=== PATIENT | female | born 1965 | race Caucasian/White ===

== ENCOUNTER 2021-07-05 00:13 | Inpatient (IN) | payer MEDICAID ==
[~2021-07-05] VITALS: Ht 162.6 cm; Wt 82.6 kg
[2021-07-05] MEDS ORDERED: ASPIRIN 81MG TABLET PO ONE (00:45)
[2021-07-05] MEDS ORDERED: NITROGLYCERIN 0.4MG TABLET SL SL PRN (00:45)
[2021-07-05 00:58] LABS: BASOPHILS % 0.5 % (0.0-2.0); HEMATOCRIT. 39.7 % (36.0-48.0); HEMOGLOBIN. 13.2 g/dL (12.0-16.0); LYMPHOCYTES % 22.4 % (20.0-50.0); MEAN CORPUSCULAR HEMOGLOBIN 28.6 pg (28.0-32.0); MEAN PLATELET VOLUME 9.6 fl (7.4-10.4); NEUTROPHILS % 68.1 % (40.0-76.0); PLATELET 220 x1000/uL (130-400); RED BLOOD CELL COUNT 4.61 mill/uL (4.2-5.4); RED CELL DISTRIBUTION WIDTH 13.1 % (11.6-14.6)
[2021-07-05 01:08] LABS: CHLORIDE 113 mEq/L (98-107)
[2021-07-05] MEDS ORDERED: FUROSEMIDE 40MG/4ML VIAL IVP ONE (01:15)
[2021-07-05] MEDS ORDERED: HEPARIN 25,000 UNITS in DEXT 5% WATER 250 ML IV PRN (02:15)
[2021-07-05 05:45] VITALS: BP 156/97
[2021-07-05] MEDS ORDERED: AMLO2.5T45 PO (07:07)
[2021-07-05] MEDS ORDERED: HYDR25TA PO (07:07)
[2021-07-05] MEDS ORDERED: NAPR500T7 PO (07:07)
[2021-07-05] MEDS ORDERED: LISI10TA26 PO (07:07)
[2021-07-05 08:00] VITALS: BP 158/80
[2021-07-05] MEDS ORDERED: ONDANSETRON HCL 4MG/2ML INJ IV PRN (08:30)
[2021-07-05] MEDS ORDERED: ACETAMINOPHEN 325MG TABLET PO PRN (08:30)
[2021-07-05] MEDS ORDERED: REGADENOSON 0.4 MG/5 ML IV ONE (09:15)
[2021-07-05] MEDS: ASPIRIN 81MG TABLET PO SCH (09:42)
[2021-07-05] MEDS: AMLODIPINE 5MG TABLET PO SCH (09:43)
[2021-07-05] MEDS: LISINOPRIL 10MG TABLET PO SCH (09:43)
[2021-07-05 10:00] VITALS: BP 129/80
[2021-07-05] MEDS ORDERED: HEPARIN BOLUS PRN aPTT <30 IV (10:00)
[2021-07-05] MEDS ORDERED: HEPARIN BOLUS PRN aPTT 30-44 IV (10:00)
[2021-07-05] MEDS ORDERED: LISINOPRIL 2.5MG TABLET PO SCH (10:00)
[2021-07-05 12:00] VITALS: BP 133/73
[2021-07-05 16:00] VITALS: BP 142/82
[2021-07-05 20:00] VITALS: BP 133/73
[2021-07-06] VITALS: BP 114/60
[2021-07-06 04:00] VITALS: BP 125/57
[2021-07-06 07:54] LABS: BASOPHILS % 0.7 % (0.0-2.0); EOSINOPHILS % 2.3 % (0.0-5.0); HEMATOCRIT. 37.6 % (36.0-48.0); HEMOGLOBIN. 12.3 g/dL (12.0-16.0); LYMPHOCYTES % 24.6 % (20.0-50.0); MEAN CORPUSCULAR HEMOGLOBIN 28.4 pg (28.0-32.0); MEAN CORPUSCULAR VOLUME 86.7 fL (81.0-99.0); MEAN PLATELET VOLUME 10.2 fl (7.4-10.4); MONOCYTES % 7.6 % (2.0-8.0); NEUTROPHILS % 64.8 % (40.0-76.0); PLATELET 220 x1000/uL (130-400); RED BLOOD CELL COUNT 4.34 mill/uL (4.2-5.4); RED CELL DISTRIBUTION WIDTH 13.4 % (11.6-14.6)
[2021-07-06 08:00] VITALS: BP 133/69
[2021-07-06 08:01] LABS: CHLORIDE 109 mEq/L (98-107)
[2021-07-06 08:11] LABS: LDL CHOLESTEROL 105 mg/dL (5-100)
[2021-07-06 08:14] LABS: HDL CHOLESTEROL 63 mg/dL (40-59)
[2021-07-06] MEDS: ENOXAPARIN 40MG/0.4ML SYR SUBCUT SCH (09:13)
[2021-07-06] MEDS: LISINOPRIL 10MG TABLET PO SCH (09:14)
[2021-07-06] MEDS: ASPIRIN 81MG TABLET PO SCH (09:14)
[2021-07-06] MEDS: AMLODIPINE 5MG TABLET PO SCH (09:15)
[2021-07-06 12:00] VITALS: BP 149/69
[2021-07-06 16:00] VITALS: BP 128/61
[2021-07-06 20:00] VITALS: BP 136/43
[2021-07-07] VITALS: BP 145/66
[2021-07-07 04:00] VITALS: BP 151/70
[2021-07-07 07:43] LABS: BASOPHILS % 0.7 % (0.0-2.0); EOSINOPHILS % 2.6 % (0.0-5.0); HEMATOCRIT. 36.7 % (36.0-48.0); HEMOGLOBIN. 12.4 g/dL (12.0-16.0); LYMPHOCYTES % 22.3 % (20.0-50.0); MEAN CORPUSCULAR HEMOGLOBIN 29.3 pg (28.0-32.0); MEAN CORPUSCULAR VOLUME 86.5 fL (81.0-99.0); NEUTROPHILS % 66.4 % (40.0-76.0); PLATELET 206 x1000/uL (130-400); RED BLOOD CELL COUNT 4.24 mill/uL (4.2-5.4); RED CELL DISTRIBUTION WIDTH 13.1 % (11.6-14.6)
[2021-07-07 07:56] LABS: CHLORIDE 108 mEq/L (98-107)
[2021-07-07 08:00] VITALS: BP 141/68
[2021-07-07] MEDS: AMLODIPINE 5MG TABLET PO SCH (09:23)
[2021-07-07] MEDS: ASPIRIN 81MG TABLET PO SCH (09:23)
[2021-07-07] MEDS: LISINOPRIL 10MG TABLET PO SCH (09:24)
[2021-07-07] MEDS: ENOXAPARIN 40MG/0.4ML SYR SUBCUT SCH (09:24)
[2021-07-07 12:00] VITALS: BP 145/60
[2021-07-07] MEDS ORDERED: REGADENOSON 0.4 MG/5 ML IV ONE (12:56)
[2021-07-07 16:00] VITALS: BP 115/67
[2021-07-07] MEDS ORDERED: AMLODIPINE 5MG TABLET PO SCH (21:00)
== END 2021-07-07 17:37 | disposition home or self-care (01) | DRG 203 ==
LOC: ER 00:13 → 7EST 03:10 → ENRESERV 03:55
PROVIDERS: ADMIT Internal Medicine; ATTEND Internal Medicine
DX: M94.0 Chondrocostal junction syndrome [Tietze] (principal); E87.0 Hyperosmolality and hypernatremia; E87.8 Other disorders of electrolyte and fluid balance, not elsewhere classified; E11.9 Type 2 diabetes mellitus without complications; Z20.822 Contact with and (suspected) exposure to COVID-19; I10 Essential (primary) hypertension; E66.9 Obesity, unspecified; Z82.49 Family history of ischemic heart disease and other diseases of the circulatory system; Z79.899 Other long term (current) drug therapy; Z68.31 Body mass index [BMI] 31.0-31.9, adult; I35.0 Nonrheumatic aortic (valve) stenosis
CPT/HCPCS: 36415; 71045; 78452; 80048; 80053; 80061; 83880; 84443; 84484; 85025; 87426; 93005; 93017; 93306; 99285; A9500; J1650; J1940; J2785

== ENCOUNTER 2025-05-31 16:43 | Inpatient (IN) | payer MEDICAID ==
[~2025-05-31] VITALS: Ht 162.6 cm; Wt 81.6 kg
[~2025-05-31 16:43] MED LIST: AMLO2.5T45 PO; APIX5TAB PO; ASPI-1160 PO; ATOR20TA65 PO; LISI-648 MT; METF-414 PO
[2025-05-31 16:55] VITALS: O2SAT 99
[2025-05-31] MEDS: ASPIRIN 325MG EC TABLET PO ONE (18:29)
[2025-05-31 18:37] LABS: BASOPHILS % 0.5 % (0.0-2.0); EOSINOPHILS % 0.9 % (0.0-5.0); HEMATOCRIT. 39.6 % (36.0-48.0); HEMOGLOBIN. 13.2 g/dL (12.0-16.0); LYMPHOCYTES % 14.6 % (20.0-50.0); MEAN PLATELET VOLUME 9.7 fl (7.4-10.4); MONOCYTES % 5.6 % (2.0-8.0); NEUTROPHILS % 78.4 % (40.0-76.0); PLATELET 231 x1000/uL (130-400); RED BLOOD CELL COUNT 4.72 mill/uL (4.2-5.4); RED CELL DISTRIBUTION WIDTH 13.2 % (11.6-14.6)
[2025-05-31 18:55] LABS: CREATININE 0.7 mg/dL (0.6-1.0); UREA NITROGEN BLOOD 10 mg/dL (9-23)
[2025-05-31 18:56] LABS: ASPARTATE AMINOTRANSFERASE 27 IU/L (<34)
[2025-05-31 18:57] LABS: BILIRUBIN DIRECT 0.2 mg/dL (<=3.0); BILIRUBIN TOTAL 0.6 mg/dL (0.1-1.0); PROTEIN TOTAL 7.6 g/dL (6.0-8.3)
[2025-05-31 19:09] LABS: TROPONIN I HIGH SENSITIVITY 156 ng/L (3.0-34)
[2025-05-31 22:16] LABS: TROPONIN I HIGH SENSITIVITY 169 ng/L (3.0-34)
[2025-05-31] MEDS ORDERED: ENOXAPARIN 40MG/0.4ML SYR SUBCUT NR (23:25)
[2025-05-31] MEDS ORDERED: MAGNESIUM/ALUMINUM HYDROXIDE/SIMETHICONE 30ML UDC PO PRN (23:30)
[2025-05-31] MEDS ORDERED: DEXTROSE 50% WATER 50ML SYRINGE IV PRN (23:30)
[2025-05-31] MEDS ORDERED: HYDROCODONE/ACETAMINOPHEN 5/325MG TABLET PO PRN (23:30)
[2025-05-31] MEDS ORDERED: ZOLPIDEM TARTRATE 5MG TABLET PO PRN (23:30)
[2025-05-31] MEDS ORDERED: CLONIDINE 0.1MG TABLET PO PRN (23:30)
[2025-05-31] MEDS ORDERED: ACETAMINOPHEN 325MG TABLET PO PRN (23:30)
[2025-05-31] MEDS ORDERED: ENOXAPARIN 40MG/0.4ML SYR SUBCUT SCH (23:30)
[2025-05-31] MEDS ORDERED: ONDANSETRON HCL 4MG/2ML INJ IV PRN (23:30)
[2025-06-01] VITALS: BP 102/41; PULSE 74; RESP 18; TEMP 36.2512
[2025-06-01] MEDS: ENOXAPARIN 100MG/ML SYR SUBCUT NR (00:29)
[2025-06-01] MEDS: BLOOD SUGAR DIAGNOSTIC STRIP TEST SCH (07:10)
[2025-06-01] MEDS: INSULIN LISPRO 100 UNITS/ML SUBCUT SCH (07:40)
[2025-06-01 07:58] LABS: INR 1.1
[2025-06-01 07:59] LABS: BASOPHILS % 0.9 % (0.0-2.0); EOSINOPHILS % 2.4 % (0.0-5.0); HEMATOCRIT. 36.4 % (36.0-48.0); HEMOGLOBIN. 12.2 g/dL (12.0-16.0); LYMPHOCYTES % 27.5 % (20.0-50.0); MEAN PLATELET VOLUME 10.2 fl (7.4-10.4); MONOCYTES % 9.4 % (2.0-8.0); NEUTROPHILS % 59.8 % (40.0-76.0); PLATELET 203 x1000/uL (130-400); RED BLOOD CELL COUNT 4.35 mill/uL (4.2-5.4); RED CELL DISTRIBUTION WIDTH 13.2 % (11.6-14.6)
[2025-06-01 08:00] VITALS: BP 130/71; PULSE 75; RESP 16; TEMP 36.8; O2SAT 98
[2025-06-01 08:11] LABS: CREATININE 0.7 mg/dL (0.6-1.0); UREA NITROGEN BLOOD 14 mg/dL (9-23)
[2025-06-01] MEDS: PANTOPRAZOLE SODIUM 40 MG/VIAL IV SCH (08:43)
[2025-06-01] MEDS: ASPIRIN 81MG TABLET PO SCH (08:43)
[2025-06-01 09:20] LABS: TROPONIN I HIGH SENSITIVITY 189 ng/L (3.0-34)
[2025-06-01 09:54] LABS: CLARITY URINE CLEAR (CLEAR); COLOR URINE YELLOW (YELLOW); PH URINE 6.5 (4.5-8.0); SPECIFIC GRAVITY URINE 1.019 (1.005-1.030)
[2025-06-01 09:55] LABS: GLUCOSE URINE NEGATIVE (NEGATIVE); KETONES URINE NEGATIVE (NEGATIVE); LEUKOCYTE ESTERASE URINE NEGATIVE (NEGATIVE); NITRITE URINE NEGATIVE (NEGATIVE); OCCULT BLOOD URINE NEGATIVE (NEGATIVE); PROTEIN URINE NEGATIVE (NEGATIVE); UROBILINOGEN URINE 0.2 E.U./dL (0.2-1.0)
[2025-06-01] MEDS ORDERED: ENOXAPARIN 100MG/ML SYR SUBCUT SCH (10:00)
[2025-06-01 10:27] LABS: *AMPHETAMINES SCREEN URINE NEGATIVE (NEGATIVE); *BARBITURATES SCREEN URINE NEGATIVE (NEGATIVE); *BENZODIAZEPINES SCREEN URINE NEGATIVE (NEGATIVE); *COCAINE SCREEN URINE NEGATIVE (NEGATIVE); METHADONE URINE SCREEN NEGATIVE (NEGATIVE)
[2025-06-01 10:28] LABS: OPIATES URINE SCREEN NEGATIVE (NEGATIVE)
[2025-06-01 10:30] LABS: CANNABINOID URINE SCREEN NEGATIVE (NEGATIVE); ECSTASY MDMA SCREEN URINE NEGATIVE (NEGATIVE); PHENCYCLIDINE URINE SCREEN NEGATIVE (NEGATIVE)
[2025-06-01 12:00] VITALS: BP 121/75; PULSE 80; RESP 18; TEMP 36.6; O2SAT 98
[2025-06-01] MEDS: ENOXAPARIN 100MG/ML SYR SUBCUT SCH (12:54)
[2025-06-01] MEDS ORDERED: NALOXONE HCL 0.4MG/ML VIAL IV PRN (15:45)
[2025-06-01 16:00] VITALS: BP 132/81; PULSE 90; RESP 18; TEMP 36.7; O2SAT 98
[2025-06-01 19:31] VITALS: BP 132/81; PULSE 90; RESP 18; TEMP 98
[2025-06-01] MEDS ORDERED: METOPROLOL TARTRATE 25MG TABLET PO SCH (21:00)
[2025-06-01] MEDS ORDERED: ATORVASTATIN CALCIUM 40MG TABLET PO SCH (21:00)
== END 2025-06-01 19:35 | disposition short-term general hospital (02) | DRG 198 ==
LOC: ER 16:43 → EDBEDREQTM 20:58 → EDBEDREQ 20:58 → ENRESERV 22:20 → 8WST 23:09
PROVIDERS: ADMIT Internal Medicine; ATTEND Internal Medicine
DX: I20.9 Angina pectoris, unspecified (principal); E11.9 Type 2 diabetes mellitus without complications; R01.1 Cardiac murmur, unspecified; I10 Essential (primary) hypertension; R79.89 Other specified abnormal findings of blood chemistry; E78.00 Pure hypercholesterolemia, unspecified; I48.91 Unspecified atrial fibrillation; R00.2 Palpitations
CPT/HCPCS: 36415; 71045; 80048; 80076; 80305; 81003; 82962; 83036; 83735; 84443; 84484; 85025; 93005; 93970; 99291; J1650; J1815; J2470

== ENCOUNTER 2025-06-19 17:42 | Inpatient (IN) | payer MEDICAID ==
[~2025-06-19] VITALS: Ht 157.5 cm; Wt 85.0 kg
[2025-06-19 17:44] VITALS: O2SAT 100
[2025-06-19 20:16] LABS: BASOPHILS % 0.8 % (0.0-2.0); EOSINOPHILS % 1.7 % (0.0-5.0); HEMATOCRIT. 30.2 % (36.0-48.0); HEMOGLOBIN. 10.1 g/dL (12.0-16.0); LYMPHOCYTES % 20.4 % (20.0-50.0); MEAN PLATELET VOLUME 9.6 fl (7.4-10.4); MONOCYTES % 7.2 % (2.0-8.0); NEUTROPHILS % 69.9 % (40.0-76.0); PLATELET 181 x1000/uL (130-400); RED BLOOD CELL COUNT 3.60 mill/uL (4.2-5.4); RED CELL DISTRIBUTION WIDTH 13.1 % (11.6-14.6)
[2025-06-19 20:31] LABS: CREATININE 0.7 mg/dL (0.6-1.0); UREA NITROGEN BLOOD 15 mg/dL (9-23)
[2025-06-19 20:32] LABS: INR 1.0
[2025-06-19 20:33] LABS: ASPARTATE AMINOTRANSFERASE 33 IU/L (<34); BILIRUBIN DIRECT 0.1 mg/dL (<=3.0); BILIRUBIN TOTAL 0.3 mg/dL (0.1-1.0)
[2025-06-19 20:34] LABS: PROTEIN TOTAL 6.2 g/dL (6.0-8.3)
[2025-06-19 20:58] LABS: TROPONIN I HIGH SENSITIVITY 115 ng/L (3.0-34)
[2025-06-19] MEDS: ASPIRIN 325MG TABLET PO ONE (22:02)
[2025-06-19] MEDS ORDERED: CLONIDINE 0.1MG TABLET PO PRN (23:30)
[2025-06-19] MEDS ORDERED: DOCUSATE SODIUM 100MG CAPSULE PO PRN (23:30)
[2025-06-19] MEDS ORDERED: ONDANSETRON HCL 4MG/2ML INJ IV PRN (23:30)
[2025-06-19] MEDS ORDERED: DEXTROSE 50% WATER 50ML SYRINGE IV PRN (23:30)
[2025-06-19] MEDS ORDERED: ACETAMINOPHEN 325MG TABLET PO PRN ×2 (23:30)
[2025-06-19] MEDS ORDERED: IPRATROPIUM/ALBUTEROL 0.5-3(2.5)MG/3ML NEB HHN PRN (23:30)
[2025-06-20] VITALS: BP 133/67; PULSE 66; PULSE 67; RESP 18; TEMP 35.7; TEMP 35.7508; O2SAT 100
[2025-06-20] MEDS ORDERED: AMLO2.5T45 PO (01:19)
[2025-06-20] MEDS ORDERED: ASPI-1497 PO (01:19)
[2025-06-20] MEDS ORDERED: ATOR20TA65 MT (01:19)
[2025-06-20] MEDS ORDERED: METF-414 PO (01:19)
[2025-06-20] MEDS ORDERED: LISI-649 MT (01:19)
[2025-06-20] MEDS ORDERED: APIX5TAB PO (01:19)
[2025-06-20 04:00] VITALS: BP 111/60; PULSE 68; RESP 18; TEMP 36.6; O2SAT 100
[2025-06-20 06:52] LABS: CREATINE KINASE MB FRACTION 1.8 ng/mL (0.5-3.6)
[2025-06-20 07:00] LABS: CREATININE 0.5 mg/dL (0.6-1.0); UREA NITROGEN BLOOD 13 mg/dL (9-23)
[2025-06-20 07:19] LABS: BASOPHILS % 0.9 % (0.0-2.0); EOSINOPHILS % 2.4 % (0.0-5.0); HEMATOCRIT. 36.3 % (36.0-48.0); HEMOGLOBIN. 12.1 g/dL (12.0-16.0); LYMPHOCYTES % 25.6 % (20.0-50.0); MEAN PLATELET VOLUME 10.0 fl (7.4-10.4); MONOCYTES % 8.1 % (2.0-8.0); NEUTROPHILS % 63.0 % (40.0-76.0); PLATELET 199 x1000/uL (130-400); RED BLOOD CELL COUNT 4.36 mill/uL (4.2-5.4); RED CELL DISTRIBUTION WIDTH 13.2 % (11.6-14.6)
[2025-06-20 08:00] VITALS: BP 130/67; PULSE 70; RESP 16; TEMP 36.5; O2SAT 98
[2025-06-20] MEDS: INSULIN LISPRO 100 UNITS/ML SUBCUT SCH (08:20)
[2025-06-20] MEDS: BLOOD SUGAR DIAGNOSTIC STRIP TEST SCH (08:28)
[2025-06-20] MEDS: PANTOPRAZOLE SODIUM 40 MG/VIAL IV SCH (09:05)
[2025-06-20] MEDS: METOPROLOL TARTRATE 25MG TABLET PO SCH (09:05)
[2025-06-20] MEDS: APIXABAN 5 MG TABLET PO SCH (09:05)
[2025-06-20] MEDS: ASPIRIN 81MG EC TABLET PO SCH (09:05)
[2025-06-20 10:48] LABS: TROPONIN I HIGH SENSITIVITY 165 ng/L (3.0-34)
[2025-06-20 12:00] VITALS: BP 130/62; PULSE 68; RESP 16; TEMP 36.5; O2SAT 100
[2025-06-20 16:00] VITALS: BP 124/54; PULSE 69; RESP 16; TEMP 36.4; O2SAT 99
[2025-06-20 17:26] LABS: CREATINE KINASE MB FRACTION 1.3 ng/mL (0.5-3.6)
[2025-06-20 17:33] LABS: TROPONIN I HIGH SENSITIVITY 139 ng/L (3.0-34)
[2025-06-20 20:00] VITALS: BP 127/46; PULSE 68; RESP 18; TEMP 36.6; O2SAT 98
[2025-06-20] MEDS: ATORVASTATIN CALCIUM 20MG TABLET PO SCH (21:07)
[2025-06-21] VITALS: BP 126/64; PULSE 66; RESP 18; TEMP 36.7; O2SAT 99
[2025-06-21 04:00] VITALS: BP 122/56; PULSE 67; RESP 18; TEMP 36.7; O2SAT 100
[2025-06-21 06:42] LABS: PLATELET 207 x1000/uL (130-400); RED BLOOD CELL COUNT 4.27 mill/uL (4.2-5.4); RED CELL DISTRIBUTION WIDTH 13.4 % (11.6-14.6)
[2025-06-21 07:00] LABS: CREATININE 0.7 mg/dL (0.6-1.0); UREA NITROGEN BLOOD 16 mg/dL (9-23)
[2025-06-21 08:00] VITALS: BP 126/61; PULSE 68; RESP 18; TEMP 36.6; O2SAT 97
[2025-06-21 12:00] VITALS: BP 129/59; PULSE 66; RESP 16; TEMP 36.7; O2SAT 98
[2025-06-21 16:00] VITALS: BP 121/66; PULSE 68; RESP 20; TEMP 36.7; O2SAT 99
[2025-06-21] MEDS ORDERED: LISI-186 MT (18:36)
[2025-06-21] MEDS ORDERED: METO25TA6 MT (18:36)
[2025-06-21 20:00] VITALS: BP 127/71; PULSE 73; RESP 18; TEMP 36.1; O2SAT 98
[2025-06-22] VITALS: BP 122/56; PULSE 70; RESP 17; TEMP 36.6; O2SAT 98
[2025-06-22 04:00] VITALS: BP 103/55; PULSE 69; RESP 18; TEMP 36.6; O2SAT 99
[2025-06-22 08:00] VITALS: BP 133/64; PULSE 77; RESP 18; TEMP 36.2; O2SAT 99
[2025-06-22 10:16] VITALS: BP 133/64; PULSE 71; RESP 18; TEMP 97.1
== END 2025-06-22 11:00 | disposition home or self-care (01) | DRG 201 ==
LOC: ER 17:42 → 6WST 21:38 → EDBEDREQTM 21:55 → EDBEDREQ 21:55 → ENRESERV 23:21
PROVIDERS: ADMIT Internal Medicine; ATTEND Internal Medicine
DX: I48.0 Paroxysmal atrial fibrillation (principal); I25.110 Atherosclerotic heart disease of native coronary artery with unstable angina pectoris; D64.9 Anemia, unspecified; I10 Essential (primary) hypertension; E11.9 Type 2 diabetes mellitus without complications; E78.00 Pure hypercholesterolemia, unspecified; Z79.01 Long term (current) use of anticoagulants; Z79.899 Other long term (current) drug therapy; Z79.82 Long term (current) use of aspirin; Z82.3 Family history of stroke; Z82.49 Family history of ischemic heart disease and other diseases of the circulatory system
CPT/HCPCS: 36415; 71045; 80048; 80076; 82550; 82553; 82728; 82962; 83540; 83550; 83735; 83880; 84484; 85025; 85027; 93005; 99291; J1815; J2470